=== PATIENT | male | born 1995 | race Hispanic/Latino ===

== ENCOUNTER 2023-01-25 08:45 | Emergency (ER) | payer OTHER ==
[~2023-01-25] VITALS: Ht 177.8 cm; Wt 77.1 kg
[2023-01-25] MEDS ORDERED: CEPHALEXIN500 M1 PO (09:24)
== END 2023-01-25 09:40 | disposition home or self-care (01) ==
LOC: ED 08:45
DX: S71.111A Laceration without foreign body, right thigh, initial encounter (principal); W27.0XXA Contact with workbench tool, initial encounter
CPT/HCPCS: 12032; 90471; 90715; 99282-25